=== PATIENT | male | born 1935 | race Caucasian/White ===

== ENCOUNTER 2017-11-09 07:09 | Emergency (ER) | payer MEDICARE, OTHER ==
[2017-11-09] MEDS ORDERED: Meclizine 25 MG Tab PO ONE (07:52)
--- NOTE | 2017-11-09 07:57 | EDM.PDOC ---
ED HPI GENERAL MEDICAL PROBLEM - General Chief Complaint: Neuro Symptoms/Deficits Stated Complaint: MEDICAL Time Seen by Provider: 11/09/17 07:44 Source of Information: Reports: Patient, Family, RN Notes Reviewed History Limitations: Reports: No Limitations - History of Present Illness INITIAL COMMENTS - FREE TEXT/NARRATIVE: 82-year-old gentleman presents to the emergency department today complaint of weakness and dizziness, he has a known history of cerebrovascular accident initially 2003 and 2015, states he awoke this morning very dizzy could not stand up had difficulty finding his cane very weak. Denies shortness of breath chest pain nausea vomiting no GI symptoms he feels everything works, no neurologic complaints Neck Pain Score (Numeric/FACES): 8 - Related Data Allergies Allergy/AdvReac Type Severity Reaction Status Date / Time No Known Allergies Allergy Verified 11/09/17 07:14 Home Meds: Home Meds Aspirin [Bobbi Chewable] 81 mg PO DAILY 04/13/13 [History] Cholecalciferol (Vitamin D3) [Vitamin D3] 2,000 unit PO DAILY 04/13/13 [History] Isosorbide Mononitrate [Imdur] 30 mg PO DAILY 04/13/13 [History] Mirtazapine 45 mg PO BEDTIME 04/13/13 [History] Nitroglycerin [Nitrostat] 0.4 mg SL ASDIRECTED 04/13/13 [History] Eleva-3 Fatty Acids [Eleva-3] 1,000 mg PO DAILY 04/13/13 [History] Oxybutynin 5 mg PO BEDTIME 04/13/13 [History] Pantoprazole [Protonix] 40 mg PO DAILY 04/13/13 [History] Primidone [Mysoline] 50 mg PO DAILY 04/13/13 [History] Simvastatin [Zocor] 40 mg PO DAILY 04/13/13 [History] Sucralfate [Carafate] 1 gm PO ACBED 04/13/13 [History] Tamsulosin HCl [Flomax] 0.4 mg PO BEDTIME 04/13/13 [History] traMADol [Ultram] 100 mg PO Q6H PRN 04/13/13 [History] Capsaicin [Zostrix 0.025% Crm] 1 applic TOP BID PRN 04/01/15 [History] Dorzolamide HCl/Timolol Maleat [Dorzolamide-Timolol Eye Drops] 1 drop EYELF BID 04/01/15 [History] Latanoprost [Xalatan 0.005% Ophth Soln] 1 drop EYEBOTH BEDTIME 04/01/15 [History ] Ascorbate Calcium [Vitamin C] 500 mg PO DAILY 12/17/15 [History] Meclizine HCl 12.5 mg PO TID PRN 12/17/15 [History] Polyethylene Glycol 3350 [MiraLAX] 17 gm PO DAILY PRN 12/17/15 [History] Metoprolol Tartrate [Lopressor] 25 mg PO BID 11/09/17 [History] Past Medical History HEENT History: Reports: Glaucoma, Impaired Vision Cardiovascular History: Reports: Arrhythmia, High Cholesterol, Hypertension, Pacemaker Gastrointestinal History: Reports: Chronic Diarrhea Musculoskeletal History: Reports: Back Pain, Chronic, Other (See Below) Other Musculoskeletal History: hx of pain clinic epidural Neurological History: Reports: CVA, Seizure, TIA, Vertigo, Other (See Below) Other Neuro History: tremors Psychiatric History: Reports: Depression Endocrine/Metabolic History: Reports: Obesity/BMI 30+ Other Endocrine/Metabolic History: hyperglycemic - Infectious Disease History Infectious Disease History: Reports: Chicken Pox - Past Surgical History Head Surgeries/Procedures: Reports: None HEENT Surgical History: Reports: Cataract Surgery, LASIK Cardiovascular Surgical History: Reports: None GI Surgical History: Reports: Appendectomy, Cholecystectomy, Colonoscopy, Small Bowel, Other (See Below) Other GI Surgeries/Procedures: hx of colostomy Endocrine Surgical History: Reports: None Neurological Surgical History: Reports: None Musculoskeletal Surgical History: Reports: Knee Replacement, Shoulder Surgery Other Musculoskeletal Surgeries/Procedures:: right shoulder, bilat knees Dermatological Surgical History: Reports: None Social & Family History - Tobacco Use Smoking Status *Q: Former Smoker Used Tobacco, but Quit: Yes Month/Year Tobacco Last Used: 1969 Second Hand Smoke Exposure: No - Recreational Drug Use Recreational Drug Use: No ED ROS GENERAL - Review of Systems Review Of Systems: See Below Constitutional: Reports: No Symptoms HEENT: Reports: No Symptoms Respiratory: Reports: No Symptoms Cardiovascular: Reports: Lightheadedness GI/Abdominal: Reports: No Symptoms : Reports: No Symptoms Musculoskeletal: Reports: No Symptoms Skin: Reports: No Symptoms Neurological: Reports: Dizziness, Difficulty Walking, Weakness ED EXAM, NEURO - Physical Exam Exam: See Below Text/Narrative:: General: Male, not in any distress, alert and oriented x3 HEENT: head is atraumatic normocephalic, eyes pupils equal round reactive to light, sclera clear no conjunctivitis appreciated extraocular eye movements intact. Ears tympanic membranes clear and gibson landmarks and light reflex are present bilaterally canals are clear. Nose no septal deviation, nares are clear, no blood present. Mouth mucosa is moist and pink no erythema or exudate noted in soft palate, tongue is midline uvula is midline, dentition is intact. Neck: Supple no thyromegaly no tracheal deviation. Nodes: Cervical nodes subclavicular nodes nontender no palpable lymphadenopathy noted. Lungs: clear to auscultation bilaterally with symmetrical respirations, no adventitious noise appreciated. CV: Regular rate and rhythm S1 and S2 appreciated no murmurs rubs or gallops noted. Abdomen: Soft, obese, nontender, no palpable masses or organomegaly appreciated , no distention no guarding bowel sounds are present, . Neuro: Cranial nerves II through XII grossly intact, power is 5 out 5 in upper and lower extremities, no dysdiadochokinesis no focal neurologic deficit, Head impulse test: Negative loss of fixation with corrective saccades when head turned to the bilateral Nystagmus: unidirectional, horizontal 0-beating nystagmus Skew deviation: grossly absent Skin: Warm and dry, intact Extremities: No lower extremity edema appreciated, . Course - Vital Signs Last Recorded V/S: Last Vital Signs Temp 97.6 F 11/09/17 07:24 Pulse 60 11/09/17 07:24 Resp 15 11/09/17 07:24 BP 111/64 11/09/17 07:24 Pulse Ox 92 L 11/09/17 07:24 - Orders/Labs/Meds Orders: Active Orders 24 hr Category Date Time Status EKG Documentation Completion [RC] ASDIRECTED Care 11/09/17 07:52 Active UA W/MICROSCOPIC [URIN] Urgent Lab 11/09/17 08:24 Ordered EKG 12 Lead [EK] Urgent Ther 11/09/17 07:51 Ordered Labs: Laboratory Tests 11/09/17 11/09/17 11/09/17 Range/Units 07:58 07:58 08:24 WBC 8.5 (4.5-11.0) K/uL RBC 5.10 (4.30-5.90) M/uL Hgb 15.5 H (12.0-15.0) g/dL Hct 47.1 (40.0-54.0) % MCV 92 (80-98) fL MCH 30 (27-31) pg MCHC 33 (32-36) % Plt Count 228 (150-400) K/uL Neut % (Auto) 59 (36-66) % Lymph % (Auto) 27 (24-44) % [place] % (Auto) 12 H (2-6) % Eos % (Auto) 2 (2-4) % Baso % (Auto) 0 (0-1) % ESR 10 (0-20) mm/hr Sodium 136 L (140-148) mmol/L Potassium 4.4 (3.6-5.2) mmol/L Chloride 101 (100-108) mmol/L Carbon Dioxide 28 (21-32) mmol/L Anion Gap 11.4 (5.0-14.0) mmol/L BUN 17 (7-18) mg/dL Creatinine 1.0 (0.8-1.3) mg/dL Est Cr Clr Drug Dosing 59.82 mL/min Estimated GFR (MDRD) > 60 (>60) Glucose 144 H (74-106) mg/dL Calcium 9.0 D (8.5-10.1) mg/dL Total Bilirubin 0.5 (0.2-1.0) mg/dL AST 19 (15-37) U/L ALT 26 (12-78) U/L Alkaline Phosphatase 88 (46-116) U/L Troponin I < 0.017 (0.000-0.056) ng/mL Total Protein 7.1 (6.4-8.2) g/dL Albumin 3.4 (3.4-5.0) g/dL Globulin 3.7 H (2.3-3.5) g/dL Albumin/Globulin Ratio 0.9 L (1.2-2.2) Urine Color Yellow Urine Appearance Clear Urine pH 5.0 (4.5-8.0) Ur Specific [place] 1.015 (1.008-1.030) Urine Protein Negative (NEGATIVE) mg/dL Urine Glucose (UA) Normal (NEGATIVE) mg/dL Urine Ketones Negative (NEGATIVE) mg/dL Urine Occult Blood Negative (NEGATIVE) Urine Nitrite Negative (NEGAITVE) Urine Bilirubin Small (NEGATIVE) Urine Urobilinogen 1 (NORMAL) mg/dL Ur Leukocyte Esterase Negative (NEGATIVE) Urine RBC 0-5 (0-5) Urine WBC Not seen (0-5) Ur Epithelial Cells Not seen Amorphous Sediment Few Urine Bacteria Not seen Urine Mucus Not seen Meds: Medications Discontinued Medications Generic Name Dose Route Start Last Admin Trade Name Saulo PRN Reason Stop Dose Admin Meclizine HCl 25 mg 11/09/17 07:52 11/09/17 07:55 Antivert PO 11/09/17 07:53 25 mg ONETIME ONE Administration Departure - Departure Time of Disposition: Disposition: Home, Self-Care 01 Condition: Fair Clinical Impression: Dizziness - Discharge Information Referrals: Melo Magana MD [Primary Care Provider] - Forms: ED Department Discharge Additional Instructions: Continue use meclizine as needed, Please followup with your primary care provider in 3-5 days if not better, please call return to the emergency department with worsening of symptoms. - My Orders Last 24 Hours: My Active Orders 11/09/17 07:51 EKG 12 Lead [EK] Urgent 11/09/17 07:52 EKG Documentation Completion [RC] ASDIRECTED 11/09/17 08:24 UA W/MICROSCOPIC [URIN] Urgent - Assessment/Plan Last 24 Hours: My Active Orders 11/09/17 07:51 EKG 12 Lead [EK] Urgent 11/09/17 07:52 EKG Documentation Completion [RC] ASDIRECTED 11/09/17 08:24 UA W/MICROSCOPIC [URIN] Urgent Plan: Assessment Acuity = acute Site and laterality = dizziness complicated patient with known history of CVA and paced rhythm Etiology = unclear etiology Manifestations = none Location of injury = Home Lab values = CBC, CMP, troponin negative EKG demonstrates paced rhythm CT scan of the head shows no acute process Plan He had good relief from the meclizine provided in the ED was able to ambulate around the ED with his cane which is normal for him, plan to continue with the meclizine as needed follow-up with primary care 3-5 days if no improvement This note was dictated using voxapp voice recognition software please call with any questions on syntax or grammar.
--- NOTE | 2017-11-09 08:51 | CT ---
Head wo Cont HISTORY: Dizziness COMPARISON: November 2015 Auto dosage reduction and iterative reconstruction techniques were employed. FINDINGS:There is central and cortical cerebral atrophy consistent with age. There is a chronic infar ct of the left occipital lobe where there is encephalomalacia. There is no hemorrhage, mass effect, o r edema. Low attenuation is demonstrated throughout the deep periventricular white matter. The findin gs are most consistent with chronic ischemic microvascular changes of the white matter. The brainstem and posterior fossa are unremarkable. The orbital structures demonstrate no abnormalities. The sinus es demonstrate normal aeration. IMPRESSION: 1. Stable age-related involutional changes. Chronic left occipital infarct. No acute intracranial jagruti nges are demonstrated.
== END 2017-11-09 09:20 | disposition home or self-care (01) ==
LOC: JP.ED 07:09
DX: R42 Dizziness and giddiness (principal); I10 Essential (primary) hypertension; E66.9 Obesity, unspecified; Z86.73 Personal history of transient ischemic attack (TIA), and cerebral infarction without residual deficits; Z79.899 Other long term (current) drug therapy; Z87.891 Personal history of nicotine dependence
CPT/HCPCS: 36415; 70450; 80053; 81001; 84484; 85025; 85651; 93005; 99285; A9270

== ENCOUNTER 2020-12-22 15:08 | Emergency (ER) | payer MEDICARE, OTHER ==
[2020-12-22] MEDS ORDERED: Sodium Chloride 0.9% 10 ML Syringe FLUSH PRN (15:24)
--- NOTE | 2020-12-22 15:27 | EDM.PDOC ---
ED HPI GENERAL MEDICAL PROBLEM - General Chief Complaint: Neurological Problem Stated Complaint: DIZZY Time Seen by Provider: 12/22/20 15:17 Source of Information: Reports: Patient, EMS, Old Records History Limitations: Reports: Altered Mental Status - History of Present Illness INITIAL COMMENTS - FREE TEXT/NARRATIVE: 85-year-old male who was well until this morning when he got up at 8:00 and made coffee. At 10:00 he got very dizzy and weak on one side apparently the left and fell back into the couch where he remained. He continued with dizziness. Apparently try to sleep but unsuccessfully and fell this afternoon as he was not getting better that he was to come in as he has a history of strokes in the past. He also has a pacemaker and multiple medical issues comorbidities. Reports taking his medications as usual. No pain noted any juncture now but he does feel dizzy and blurred vision on the right particularly - Related Data Allergies Allergy/AdvReac Type Severity Reaction Status Date / Time No Known Allergies Allergy Verified 12/22/20 15:19 Home Meds: Home Meds Aspirin [Bobbi Chewable Aspirin] 81 mg PO DAILY 04/13/13 [History] Cholecalciferol (Vitamin D3) [Vitamin D3] 2,000 unit PO DAILY 04/13/13 [History] Isosorbide Mononitrate [Imdur] 30 mg PO DAILY 04/13/13 [History] Mirtazapine 45 mg PO BEDTIME 04/13/13 [History] Nitroglycerin [Nitrostat] 0.4 mg SL ASDIRECTED 04/13/13 [History] Catarina-3 Fatty Acids [Catarina-3] 1,000 mg PO DAILY 04/13/13 [History] Oxybutynin 5 mg PO BEDTIME 04/13/13 [History] Pantoprazole [ProTONIX Granules] 40 mg PO DAILY 04/13/13 [History] Primidone [Mysoline] 50 mg PO DAILY 04/13/13 [History] Simvastatin [Zocor] 40 mg PO DAILY 04/13/13 [History] Sucralfate [Carafate] 1 gm PO ACBED 04/13/13 [History] Tamsulosin HCl [Flomax] 0.4 mg PO BEDTIME 04/13/13 [History] traMADol [Ultram] 100 mg PO Q6H PRN 04/13/13 [History] Capsaicin [Zostrix 0.025% Crm] 1 applic TOP BID PRN 04/01/15 [History] Dorzolamide HCl/Timolol Maleat [Dorzolamide-Timolol Eye Drops] 1 drop EYELF BID 04/01/15 [History] Latanoprost [Xalatan 0.005% Ophth Soln] 1 drop EYEBOTH BEDTIME 04/01/15 [History] Ascorbate Calcium [Vitamin C] 500 mg PO DAILY 12/17/15 [History] Meclizine HCl 12.5 mg PO TID PRN 12/17/15 [History] Polyethylene Glycol 3350 [MiraLAX] 17 gm PO DAILY PRN 12/17/15 [History] Metoprolol Tartrate [Lopressor] 25 mg PO BID 11/09/17 [History] Acetaminophen/HYDROcodone [HYDROcodone-Acetaminophen 5-325 MG *] 1 - 2 tab PO Q6H PRN #7 tab 02/19/18 [Rx] Ibuprofen 200 mg PO ASDIRECTED 02/20/18 [History] Sertraline [Zoloft] 75 mg PO DAILY 02/20/18 [History] Past Medical History HEENT History: Reports: Glaucoma, Impaired Vision Cardiovascular History: Reports: Arrhythmia, High Cholesterol, Hypertension, Pacemaker Gastrointestinal History: Reports: Chronic Diarrhea Musculoskeletal History: Reports: Back Pain, Chronic, Other (See Below) Other Musculoskeletal History: hx of pain clinic epidural Neurological History: Reports: CVA, Seizure, TIA, Vertigo, Other (See Below) Other Neuro History: tremors Psychiatric History: Reports: Depression Endocrine/Metabolic History: Reports: Obesity/BMI 30+ Other Endocrine/Metabolic History: hyperglycemic - Infectious Disease History Infectious Disease History: Reports: Chicken Pox - Past Surgical History Head Surgeries/Procedures: Reports: None HEENT Surgical History: Reports: Cataract Surgery, LASIK Cardiovascular Surgical History: Reports: None GI Surgical History: Reports: Appendectomy, Cholecystectomy, Colonoscopy, Small Bowel, Other (See Below) Other GI Surgeries/Procedures: hx of colostomy Endocrine Surgical History: Reports: None Neurological Surgical History: Reports: None Musculoskeletal Surgical History: Reports: Knee Replacement, Shoulder Surgery Other Musculoskeletal Surgeries/Procedures:: right shoulder, bilat knees Dermatological Surgical History: Reports: None Social & Family History - Caffeine Use Caffeine Use: Reports: Tea - Living Situation & Occupation Living situation: Reports: Occupation: Retired (live with in [place], [place].) ED ROS GENERAL - Review of Systems Review Of Systems: Comprehensive ROS is negative, except as noted in HPI. Constitutional: Reports: No Symptoms - Physical Exam Exam: See Below Text/Narrative:: 85-year-old male with good vital signs presents via paramedics from home appearing alert and cooperative and talkative and able to transfer self from the gurney to the bed. HEENT shows eyes ears nose and throat appear to be normal. Extraocular motions are normal. No facial droop. Tongue is midline. Finger scratch hearing bilaterally is normal. His field of vision however appears to be diminished in the right upper outer quadrant and he says this may be old. Sensation of the face is normal Neck is supple normal range of motion chest is clear regular rate and rhythm pacemaker site near the left upper chest. Abdomen soft active bowel sounds with extensive scar apparently from colon surgery for diverticulitis. Extremities appear normal without notable edema. There is no deformities. Skin appears normal without rash Neurologic reflexes are symmetrically absent everywhere. He can lift and hold his arms up without drift normal in the upper extremities. He can raise his right leg normally with normal strength and do [id number] to the left normally. However he has diminished ability to flex and to straight leg raise on the left and a perhaps less than half of normal strength. Babinski's appear negative. Skin sensation to touch pinching superficial appears to be normal Exam Limited By: No Limitations Course - Vital Signs Text/Narrative:: 85-year-old male with dizziness for the last few days nightly because he also had some weakness noted in his left leg. His CAT scan did not show anything acute. Chemistries are okay. He did get some fluids. By 615 he is feeling better and is able to stand. The difference in strength in the legs that was noted initially has now resolved. The dizziness is better. We do not have any beds for him to standing does not appear to really need to stay and wants to go home. Patient is discharged to follow-up with his physician return here for new or worse symptoms is concerned about the cause of her periodic dizziness. This causes our discussion noting BPPV and I offered her a prescription for Antivert to use sparingly and carefully to see if it helps Last Recorded V/S: Last Vital Signs Temp 36.4 C 12/22/20 15:11 Pulse 62 12/22/20 17:48 Resp 20 12/22/20 17:48 BP 146/64 H 12/22/20 17:48 Pulse Ox 92 L 12/22/20 17:48 - Orders/Labs/Meds Orders: Active Orders 24 hr Category Date Time Status Sodium Chloride 0.9% [Saline Flush] Med 12/22/20 15:24 Active 10 ml FLUSH ASDIRECTED PRN Saline Lock Insert [OM.PC] Routine Oth 12/22/20 15:24 Ordered Medication Orders Sodium Chloride (Sodium Chloride 0.9% 10 Ml Syringe) 10 ml FLUSH ASDIRECTED PRN PRN Reason: Keep Vein Open Last Admin: 12/22/20 15:37 Dose: 10 ml Documented by: PREILOR Labs: Laboratory Tests 12/22/20 12/22/20 12/22/20 Range/Units 15:20 15:20 15:20 WBC 6.5 (4.5-11.0) K/uL RBC 5.16 (4.30-5.90) M/uL Hgb 15.5 H (12.0-15.0) g/dL Hct 47.2 (40.0-54.0) % MCV 92 (80-98) fL MCH 30 (27-31) pg MCHC 33 (32-36) % Plt Count 179 (150-400) K/uL PT 10.2 (9.2-10.6) sec INR 1.0 Sodium 137 L (140-148) mmol/L Potassium 4.3 (3.6-5.2) mmol/L Chloride 104 (100-108) mmol/L Carbon Dioxide 25 (21-32) mmol/L Anion Gap 12.3 (5.0-14.0) mmol/L BUN 13 (7-18) mg/dL Creatinine 0.8 (0.8-1.3) mg/dL Est Cr Clr Drug Dosing 70.97 mL/min Estimated GFR (MDRD) > 60 (>60) Glucose 142 H (74-106) mg/dL Calcium 8.5 (8.5-10.1) mg/dL Total Bilirubin 0.6 (0.2-1.0) mg/dL AST 38 H D (15-37) U/L ALT 50 D (12-78) U/L Alkaline Phosphatase 105 (46-116) U/L C-Reactive Protein 0.07 (0.0-0.3) mg/dL Total Protein 6.6 (6.4-8.2) g/dL Albumin 3.3 L (3.4-5.0) g/dL Globulin 3.3 (2.3-3.5) g/dL Albumin/Globulin Ratio 1.0 L (1.2-2.2) Urine Color (YELLOW) Urine Appearance (CLEAR) Urine pH (5.0-8.0) Ur Specific [place] (1.008-1.030) Urine Protein (NEGATIVE) mg/dL Urine Glucose (UA) (NEGATIVE) mg/dL Urine Ketones (NEGATIVE) mg/dL Urine Occult Blood (NEGATIVE) Urine Nitrite (NEGATIVE) Urine Bilirubin (NEGATIVE) Urine Urobilinogen (0.2-1.0) EU/dL Ur Leukocyte Esterase (NEGATIVE) Urine RBC (0-5) Urine WBC (0-5) Ur Epithelial Cells Amorphous Sediment Urine Bacteria Urine Mucus 12/22/20 Range/Units 15:31 WBC (4.5-11.0) K/uL RBC (4.30-5.90) M/uL Hgb (12.0-15.0) g/dL Hct (40.0-54.0) % MCV (80-98) fL MCH (27-31) pg MCHC (32-36) % Plt Count (150-400) K/uL PT (9.2-10.6) sec INR Sodium (140-148) mmol/L Potassium (3.6-5.2) mmol/L Chloride (100-108) mmol/L Carbon Dioxide (21-32) mmol/L Anion Gap (5.0-14.0) mmol/L BUN (7-18) mg/dL Creatinine (0.8-1.3) mg/dL Est Cr Clr Drug Dosing mL/min Estimated GFR (MDRD) (>60) Glucose (74-106) mg/dL Calcium (8.5-10.1) mg/dL Total Bilirubin (0.2-1.0) mg/dL AST (15-37) U/L ALT (12-78) U/L Alkaline Phosphatase (46-116) U/L C-Reactive Protein (0.0-0.3) mg/dL Total Protein (6.4-8.2) g/dL Albumin (3.4-5.0) g/dL Globulin (2.3-3.5) g/dL Albumin/Globulin Ratio (1.2-2.2) Urine Color Yellow (YELLOW) Urine Appearance Clear (CLEAR) Urine pH 5.5 (5.0-8.0) Ur Specific [place] 1.010 (1.008-1.030) Urine Protein Negative (NEGATIVE) mg/dL Urine Glucose (UA) Negative (NEGATIVE) mg/dL Urine Ketones Negative (NEGATIVE) mg/dL Urine Occult Blood Negative (NEGATIVE) Urine Nitrite Negative (NEGATIVE) Urine Bilirubin Negative (NEGATIVE) Urine Urobilinogen 0.2 (0.2-1.0) EU/dL Ur Leukocyte Esterase Negative (NEGATIVE) Urine RBC Not seen (0-5) Urine WBC 0-5 (0-5) Ur Epithelial Cells Not seen Amorphous Sediment Not seen Urine Bacteria Rare Urine Mucus Not seen Meds: Medications Generic Name Dose Route Start Last Admin Trade Name Freq PRN Reason Stop Dose Admin Sodium Chloride 10 ml 12/22/20 15:24 12/22/20 15:37 Sodium Chloride 0.9% 10 Ml Syringe FLUSH 10 ml ASDIRECTED PRN Administration Keep Vein Open Departure - Departure Time of Disposition: 18:30 Disposition: Home, Self-Care 01 Condition: Good Clinical Impression: Weakness generalized, Dizziness - Discharge Information Referrals: Melo Magana MD [Primary Care Provider] - Forms: ED Department Discharge Sepsis Event Note (ED) - Focused Exam Vital Signs: Vital Signs Temp Pulse Resp BP Pulse Ox 12/22/20 17:48 62 20 146/64 H 92 L 12/22/20 17:22 62 17 154/74 H 91 L 12/22/20 16:35 64 16 154/64 H 93 L 12/22/20 16:05 68 15 144/72 H 92 L 12/22/20 15:11 36.4 C 68 16 155/80 H 92 L - My Orders Last 24 Hours: My Active Orders 12/22/20 15:24 Sodium Chloride 0.9% [Saline Flush] 10 ml FLUSH ASDIRECTED PRN Saline Lock Insert [OM.PC] Routine - Assessment/Plan Last 24 Hours: My Active Orders 12/22/20 15:24 Sodium Chloride 0.9% [Saline Flush] 10 ml FLUSH ASDIRECTED PRN Saline Lock Insert [OM.PC] Routine
--- NOTE | 2020-12-22 16:39 | CRLCT ---
For Patients: As a result of the Century Cures Act, medical imaging exams and procedure reports are released immediately into your electronic medical record. You may view this report before your referring provider. If you have questions, please contact your health care provider. Indication: Severe dizziness visual change. Technique: Noncontrast head CT Comparison: Head CT 11/09/2017 Findings: Generalized parenchymal volume. Old left occipital infarction with encephalomalacia. No acute intracranial hemorrhage or mass. No midline shift. No abnormal extra-axial air or fluid collections are seen. Mucosal thickening ethmoid air cells. Partial opacification left sphenoid sinus with hypertrophic bony changes. Impression: No acute intracranial hemorrhage or mass. Please note that all CT scans at this facility use dose modulation, iterative reconstruction, and/or weight-based dosing when appropriate to reduce radiation dose to as low as reasonably achievable. Dictated by Charisse Higuera MD @ 12/22/2020 4:38:19 PM (Electronically Signed)
== END 2020-12-22 18:57 | disposition home or self-care (01) ==
LOC: JP.ED 15:08
DX: R53.1 Weakness (principal); R42 Dizziness and giddiness; E78.00 Pure hypercholesterolemia, unspecified; I10 Essential (primary) hypertension; E66.9 Obesity, unspecified; Z68.39 Body mass index [BMI] 39.0-39.9, adult; Z79.899 Other long term (current) drug therapy; Z79.82 Long term (current) use of aspirin
CPT/HCPCS: 36415; 70450; 80053; 81001; 85027; 85610; 86140; 99285-25

== ENCOUNTER 2022-01-04 09:16 | Emergency (ER) | payer MEDICARE, OTHER ==
[2022-01-04 10:19] LABS: ESTIMATED GFR 74 mL/min (>60)
== END 2022-01-04 11:58 | disposition home or self-care (01) ==
LOC: JP.ED 09:16
DX: F03.B18 Unspecified dementia, moderate, with other behavioral disturbance (principal); E78.00 Pure hypercholesterolemia, unspecified; I10 Essential (primary) hypertension; E66.9 Obesity, unspecified; Z68.27 Body mass index [BMI] 27.0-27.9, adult; Z79.82 Long term (current) use of aspirin; Z79.899 Other long term (current) drug therapy; Z90.49 Acquired absence of other specified parts of digestive tract
CPT/HCPCS: 36415; 80048; 84484; 85025; 99285

== ENCOUNTER 2022-07-20 08:54 | Observation (INO) | payer MEDICARE, OTHER ==
[2022-07-20] MEDS ORDERED: Sodium Chloride 0.9% 10 ML Syringe FLUSH PRN ×2 (09:04→16:36)
[2022-07-20 09:44] LABS: TROPONIN I HIGH SENSITIVITY 39.4 pg/mL (<=60.3)
[2022-07-20] MEDS ORDERED: Iopamidol 755 Mg/ML 100 ML Bottle IV ONE (11:31)
[2022-07-20] MEDS ORDERED: Sodium Chloride 0.9% 75 ML IV SCH (11:45)
[2022-07-20] MEDS ORDERED: Lidocaine 1% 20 ML MDV INJECT ONE (14:46)
[2022-07-20] MEDS ORDERED: 50% Dextrose in Water 50 ML Syringe IV PRN (16:36)
[2022-07-20] MEDS ORDERED: Ondansetron 4 MG/2 ML SDV IV PRN (16:36)
[2022-07-20] MEDS ORDERED: Acetaminophen 325 MG Tab PO PRN (16:36)
[2022-07-20] MEDS ORDERED: Glucose Gel 15 GM in 37.5 GM Tube PO PRN (16:36)
[2022-07-20] MEDS: Sucralfate 1 GM Tab PO SCH ×2 (17:29→20:07)
[2022-07-20] MEDS: Insulin Lispro 100 Unit/ML 3 ML KwikPen SUBCUT SCH ×2 (17:48→21:43)
[2022-07-20] MEDS: Tamsulosin 0.4 MG Cap.ER PO SCH (20:07)
[2022-07-20] MEDS: Mirtazapine 15 MG Tab PO SCH (20:08)
[2022-07-20] MEDS: Pantoprazole 40 MG Delayed-Release Granules 1 Packet PO SCH (20:08)
[2022-07-20] MEDS ORDERED: Non-Formulary Medication 1 Each (Mirtazapine [Mirtazapine] 30 MG Tablet) PO SCH (21:00)
[2022-07-21] MEDS: Sucralfate 1 GM Tab PO SCH ×4 (08:27→20:53)
[2022-07-21] MEDS: Insulin Lispro 100 Unit/ML 3 ML KwikPen SUBCUT SCH ×4 (08:28→20:59)
[2022-07-21] MEDS: Pantoprazole 40 MG Delayed-Release Granules 1 Packet PO SCH ×2 (08:33→16:38)
[2022-07-21] MEDS ORDERED: Non-Formulary Medication 1 Each (Metformin [Glucophage] 1,000 MG Tablet) PO SCH (09:00)
[2022-07-21] MEDS ORDERED: Oxybutynin 5 MG Tab PO SCH (09:00)
[2022-07-21] MEDS: Magnesium Oxide 400 MG Tab PO SCH ×2 (10:08→20:53)
[2022-07-21] MEDS: Magnesium Sulfate/Water 2 GM in Premix Bag 1 BAG IV SCH ×2 (10:10→15:22)
[2022-07-21] MEDS ORDERED: Sodium Chloride 0.9% 10 ML Syringe FLUSH ONE (12:27)
[2022-07-21] MEDS ORDERED: Sodium Chloride 0.9% 50 ML IV SCH (12:30)
[2022-07-21] MEDS ORDERED: Iopamidol 612 MG/ML 100 ML Bottle IV SCH (12:30)
[2022-07-21] MEDS: Latanoprost 0.005% Ophth Soln 2.5 ML Bottle EYEBOTH SCH ×2 (15:04→20:54)
[2022-07-21] MEDS: Sertraline 25 MG Tab PO SCH (15:23)
[2022-07-21] MEDS: Dorzolamide/Timolol 2%-0.5% Ophth Soln 10 ML Bottle EYELF SCH ×2 (15:23→21:01)
[2022-07-21] MEDS: Oxybutynin 5 MG Tab PO SCH (15:23)
[2022-07-21] MEDS: atorvaSTATin 20 MG Tab PO SCH (15:23)
[2022-07-21] MEDS: Primidone 50 MG Tab PO SCH (15:24)
[2022-07-21] MEDS: Metoprolol Tartrate 25 MG Tab PO SCH (15:24)
[2022-07-21] MEDS: metFORMIN 500 MG Tab PO SCH (16:38)
[2022-07-21] MEDS: Tamsulosin 0.4 MG Cap.ER PO SCH (20:53)
[2022-07-21] MEDS: Mirtazapine 15 MG Tab PO SCH (20:53)
[2022-07-21] MEDS: traMADol 50 MG Tab PO PRN (20:57)
[2022-07-22] MEDS: traMADol 50 MG Tab PO PRN (07:29)
[2022-07-22] MEDS: Sucralfate 1 GM Tab PO SCH (07:30)
[2022-07-22] MEDS: Pantoprazole 40 MG Delayed-Release Granules 1 Packet PO SCH (07:51)
[2022-07-22] MEDS: metFORMIN 500 MG Tab PO SCH (07:52)
[2022-07-22] MEDS: Insulin Lispro 100 Unit/ML 3 ML KwikPen SUBCUT SCH (07:52)
[2022-07-22] MEDS: Magnesium Oxide 400 MG Tab PO SCH (08:42)
[2022-07-22] MEDS: atorvaSTATin 20 MG Tab PO SCH (08:42)
[2022-07-22] MEDS: Primidone 50 MG Tab PO SCH (08:42)
[2022-07-22] MEDS: Oxybutynin 5 MG Tab PO SCH (08:42)
[2022-07-22] MEDS: Sertraline 25 MG Tab PO SCH (08:42)
[2022-07-22] MEDS: Dorzolamide/Timolol 2%-0.5% Ophth Soln 10 ML Bottle EYELF SCH (08:42)
[2022-07-22] MEDS: Metoprolol Tartrate 25 MG Tab PO SCH (08:43)
== END 2022-07-22 11:10 | disposition home or self-care (01) ==
LOC: JP.ED 08:54 → JP.ICU 13:26
PROVIDERS: ADMIT Hospitalist; ATTEND Hospitalist
DX: C25.9 Malignant neoplasm of pancreas, unspecified (principal); C78.7 Secondary malignant neoplasm of liver and intrahepatic bile duct; C78.01 Secondary malignant neoplasm of right lung; J91.0 Malignant pleural effusion; J96.01 Acute respiratory failure with hypoxia; E11.65 Type 2 diabetes mellitus with hyperglycemia; I25.10 Atherosclerotic heart disease of native coronary artery without angina pectoris; R07.9 Chest pain, unspecified; F32.A Depression, unspecified; E66.9 Obesity, unspecified; Z79.82 Long term (current) use of aspirin; Z79.899 Other long term (current) drug therapy; Z79.84 Long term (current) use of oral hypoglycemic drugs; Z95.0 Presence of cardiac pacemaker; Z79.4 Long term (current) use of insulin; Z90.49 Acquired absence of other specified parts of digestive tract; Z20.822 Contact with and (suspected) exposure to COVID-19
CPT/HCPCS: 36415; 47000; 71045; 71045-26; 71275; 71275-26; 74177; 74177-26; 76705; 76705-26; 76942; 76942-26; 80048; 82042; 82150; 82947; 83615; 83735; 83880; 84484; 85025; 85379; 87015; 87070; 87102; 87116; 87205; 87206; 87220; 89050; 93005; 93010; 96365; 96366; 96376; 99222; 99232; 99238; 99285; A9270-GY; C1729; G0378; J3475; J3490; Q9967; U0002